=== PATIENT | male | born 1985 | race Caucasian/White ===

== ENCOUNTER 2018-04-13 12:35 | Emergency (ER) | payer OTHER ==
[~2018-04-13] VITALS: Ht 172.7 cm; Wt 124.3 kg
[~2018-04-13 12:35] MED LIST: AMOX500 PO; CETI10 PO; HYDACE5 PO; IBUP600 PO; METO10 PO; NEOPOLDEXS BOTHEYES; Naprosyn500 MG PO; PENVK500 PO; PRED20 PO; RXTRAM50 PO; TRAM50 PO
[2018-04-13] MEDS ORDERED: Zoloft50 MG PO (12:52)
[2018-04-13 13:06] LABS: Source, Urine Clean Catch
[2018-04-13 13:11] LABS: Appearance, Urine Clear (Clear); Bilirubin, Urine Neg (Neg); Blood, Urine Neg (Neg); Color, Urine Yellow (P-Yellow); Glucose Qualitative, Urine Neg (Neg); Ketones, Urine 1+ (Neg); Leukocyte Esterase, Urine Neg (Neg); Nitrite, Urine Neg (Neg); Protein, Urine 1+ (Neg); Urobilinogen, Urine 1+ (Normal)
[2018-04-13] MEDS ORDERED: Percocet 5-3251 EACH PO (13:50)
== END 2018-04-13 14:00 | disposition home or self-care (01) ==
LOC: ER 12:35
PROVIDERS: Physician Assistant
DX: N50.812 Left testicular pain (principal); N50.811 Right testicular pain; F17.200 Nicotine dependence, unspecified, uncomplicated
CPT/HCPCS: 76870; 99284-25

== ENCOUNTER 2019-07-29 16:45 | Emergency (ER) | payer OTHER ==
[~2019-07-29] VITALS: Ht 177.8 cm; Wt 117.9 kg
[~2019-07-29 16:45] MED LIST changes: +Percocet 5-3251 EACH PO; +Zoloft50 MG PO
== END 2019-07-29 19:19 | disposition home or self-care (01) ==
LOC: ER 16:45
DX: N43.3 Hydrocele, unspecified (principal); I86.1 Scrotal varices; N50.3 Cyst of epididymis; F17.220 Nicotine dependence, chewing tobacco, uncomplicated
CPT/HCPCS: 76857; 76870; 99283-25

== ENCOUNTER 2019-09-28 21:04 | Emergency (ER) | payer OTHER ==
[~2019-09-28] VITALS: Ht 175.3 cm; Wt 122.5 kg
[2019-09-28] MEDS ORDERED: Cleocin HCl300 MG PO (23:31)
== END 2019-09-28 23:45 | disposition home or self-care (01) ==
LOC: ER 21:04
DX: K04.7 Periapical abscess without sinus (principal); F17.220 Nicotine dependence, chewing tobacco, uncomplicated
CPT/HCPCS: 99282; A9270

== ENCOUNTER 2019-11-21 08:44 | Emergency (ER) | payer OTHER ==
[~2019-11-21] VITALS: Ht 177.8 cm; Wt 115.7 kg
[~2019-11-21 08:44] MED LIST changes: +Cleocin HCl300 MG PO
[2019-11-21] MEDS ORDERED: SERT50 PO (10:13)
== END 2019-11-21 10:17 | disposition home or self-care (01) ==
LOC: ER 08:44
DX: S01.01XA Laceration without foreign body of scalp, initial encounter (principal); F17.220 Nicotine dependence, chewing tobacco, uncomplicated; Z79.899 Other long term (current) drug therapy; W22.8XXA Striking against or struck by other objects, initial encounter
CPT/HCPCS: 99283

== ENCOUNTER 2020-04-21 23:19 | Emergency (ER) | payer OTHER ==
[~2020-04-21] VITALS: Ht 172.7 cm; Wt 122.5 kg
[~2020-04-21 23:19] MED LIST changes: +SERT50 PO
== END 2020-04-22 00:20 | disposition home or self-care (01) ==
LOC: ER 23:19
DX: R10.32 Left lower quadrant pain (principal); F17.200 Nicotine dependence, unspecified, uncomplicated; Z79.899 Other long term (current) drug therapy
CPT/HCPCS: 99282

== ENCOUNTER 2020-07-29 09:07 | Emergency (ER) | payer OTHER ==
[~2020-07-29] VITALS: Ht 177.8 cm; Wt 122.5 kg
[2020-07-29] MEDS ORDERED: Cyclobenzaprine5 MG PO (10:49)
== END 2020-07-29 11:05 | disposition home or self-care (01) ==
LOC: ER 09:07
DX: M54.5 Low back pain (principal); G89.29 Other chronic pain; R19.7 Diarrhea, unspecified; M54.2 Cervicalgia; F17.200 Nicotine dependence, unspecified, uncomplicated; Z79.899 Other long term (current) drug therapy
CPT/HCPCS: 70450; 72040; 99284-25

== ENCOUNTER 2020-10-27 21:32 | Emergency (ER) | payer OTHER ==
[~2020-10-27] VITALS: Ht 177.8 cm; Wt 129.3 kg
[~2020-10-27 21:32] MED LIST changes: +Cyclobenzaprine5 MG PO
[2020-10-28 02:18] LABS: Source, Urine Voided
[2020-10-28 02:20] LABS: Blood, Urine Neg (Neg); Glucose Qualitative, Urine Neg (Neg); Ketones, Urine Neg (Neg); Leukocyte Esterase, Urine Neg (Neg); Nitrite, Urine Neg (Neg); Protein, Urine 2+ (Neg); Urobilinogen, Urine NORM (Normal)
[2020-10-28 02:22] LABS: BASOPHILS ABSOLUTE AUTO 0.03 K/mm3 (0.00-0.23); BASOPHILS PERCENT AUTO 1 % (0-2); EOSINOPHILS PERCENT AUTO 2 % (0-6); Hemoglobin 15.1 g/dL (13.5-17.5); IMMATURE GRAN ABSOLUTE AUTO 0.02 K/mm3 (0.00-0.10); IMMATURE GRAN PERCENT AUTO 0 % (0-1); LYMPHOCYTES ABSOLUTE AUTO 1.02 K/mm3 (0.84-5.20); LYMPHOCYTES PERCENT AUTO 16 % (21-46); MONOCYTES ABSOLUTE AUTO 0.35 K/mm3 (0.16-1.47); MONOCYTES PERCENT AUTO 6 % (4-13); Mean Corpuscular HGB Conc 32.1 g/dL (31.5-36.5); Mean Corpuscular Volume 81 fL (80-100); NEUTROPHILS ABSOLUTE AUTO 4.84 K/mm3 (1.96-9.15); NEUTROPHILS PERCENT AUTO 76 % (41-73); RDW Standard Deviation 37.8 fL (35.1-46.3); White Blood Cell Count 6.36 K/mm3 (4.00-11.30)
[2020-10-28 02:23] LABS: Mean Platelet Volume 10.7 fL (9.1-12.4); Platelet Count 206 K/mm3 (150-400)
[2020-10-28 02:27] LABS: Appearance, Urine Clear (Clear); Bilirubin, Urine 1+ (Neg); Color, Urine Amber (P-Yellow)
[2020-10-28 02:28] LABS: Amorphous Light (0-Heavy); Bacteria Few /hpf; Calcium Oxalate Crystals Many /hpf; Mucus Light (0-Heavy); Red Blood Cells, Urine Not Seen /hpf (0-2); Squamous Epithelial Cells Few /hpf (Few); White Blood Cells, Urine Not Seen /hpf (0-5)
[2020-10-28 02:32] LABS: Alanine Aminotransfer (ALT/SGP 43 U/L (12-78); Albumin/Globulin Ratio 1.1 (0.8-1.8); Alk Phos 91 U/L (50-136); Anion Gap 5 mmol/L (6-16); Aspartate Aminotrans (AST/SGOT 16 U/L (12-37); Bilirubin, Total 0.4 mg/dL (0.1-1.0); Blood Urea Nitrogen 13 mg/dL (8-24); Bun/Creatinine Ratio 15.5 (12.0-20.0); CO2, Blood 27 mmol/L (21-32); Calcium, Blood 8.8 mg/dL (8.5-10.1); Chloride, Blood 108 mmol/L (98-108); Creatinine, Blood 0.84 mg/dL (0.60-1.20); Globulin, Blood 3.7 g/dL (2.2-4.0); Glomerular Filtration Rate >60 (60-); Glucose, Blood 90 mg/dL (70-99); Potassium, Blood 3.7 mmol/L (3.5-5.5); Sodium, Blood 140 mmol/L (136-145); Total Protein, Blood 7.7 g/dL (6.4-8.2)
[2020-10-28] MEDS ORDERED: ONDA4ODT MM (03:06)
== END 2020-10-28 03:43 | disposition home or self-care (01) ==
LOC: ER 21:32
PROVIDERS: Student in an Organized Health Care Education/Training Program
DX: K52.9 Noninfective gastroenteritis and colitis, unspecified (principal)
CPT/HCPCS: 36415; 80053; 81001; 83690; 85025; 96374; 99284; J2405

== ENCOUNTER → 2021-03-10 | Outpatient (CLI) | payer OTHER ==
[~2021-03-10] MED LIST changes: +ONDA4ODT MM
[2021-03-10 09:15] LABS: BASOPHILS ABSOLUTE AUTO 0.03 K/mm3 (0.00-0.23); BASOPHILS PERCENT AUTO 1 % (0-2); EOSINOPHILS ABSOLUTE AUTO 0.04 K/mm3 (0.00-0.68); EOSINOPHILS PERCENT AUTO 1 % (0-6); Hematocrit 45.9 % (37.0-53.0); Hemoglobin 14.9 g/dL (13.5-17.5); IMMATURE GRAN ABSOLUTE AUTO 0.04 K/mm3 (0.00-0.10); IMMATURE GRAN PERCENT AUTO 1 % (0-1); LYMPHOCYTES ABSOLUTE AUTO 1.73 K/mm3 (0.84-5.20); LYMPHOCYTES PERCENT AUTO 32 % (21-46); MONOCYTES ABSOLUTE AUTO 0.35 K/mm3 (0.16-1.47); MONOCYTES PERCENT AUTO 7 % (4-13); Mean Corpuscular HGB Conc 32.5 g/dL (31.5-36.5); Mean Corpuscular Volume 80 fL (80-100); Mean Platelet Volume 9.2 fL (9.1-12.4); NEUTROPHILS ABSOLUTE AUTO 3.19 K/mm3 (1.96-9.15); NEUTROPHILS PERCENT AUTO 59 % (41-73); Platelet Count 250 K/mm3 (150-400); RDW Coefficient Variation 13.1 % (11.7-14.2); RDW Standard Deviation 37.1 fL (35.1-46.3); Red Blood Cell Count 5.73 M/mm3 (4.30-5.90); White Blood Cell Count 5.38 K/mm3 (4.00-11.30)
[2021-03-10 09:27] LABS: Alanine Aminotransfer (ALT/SGP 68 U/L (12-78); Albumin, Blood 4.1 g/dL (3.4-5.0); Albumin/Globulin Ratio 1.2 (0.8-1.8); Alk Phos 113 U/L (40-126); Anion Gap 10 mmol/L (6-16); Aspartate Aminotrans (AST/SGOT 28 U/L (12-37); Bilirubin, Total 0.3 mg/dL (0.1-1.0); Blood Urea Nitrogen 16 mg/dL (8-24); Bun/Creatinine Ratio 20.5 (12.0-20.0); CO2, Blood 26 mmol/L (21-32); Calcium, Blood 9.4 mg/dL (8.5-10.1); Chloride, Blood 104 mmol/L (98-108); Creatinine, Blood 0.78 mg/dL (0.60-1.20); Globulin, Blood 3.5 g/dL (2.2-4.0); Glomerular Filtration Rate >60 (60-); Glucose, Blood 106 mg/dL (70-99); Potassium, Blood 3.9 mmol/L (3.5-5.5); Sodium, Blood 140 mmol/L (136-145); Total Protein, Blood 7.6 g/dL (6.4-8.2)
[2021-03-10 09:30] LABS: Troponin I <0.017 ng/mL (0.000-0.040)
== END | disposition home or self-care (01) ==
LOC: LAB SHORT 09:07
PROVIDERS: General Practice
DX: R42 Dizziness and giddiness (principal)
CPT/HCPCS: 80053; 84484; 85025

== ENCOUNTER 2021-06-29 18:43 | Emergency (ER) | payer OTHER ==
[~2021-06-29] VITALS: Ht 177.8 cm; Wt 136.1 kg
== END 2021-06-29 20:19 | disposition home or self-care (01) ==
LOC: ER 18:43
DX: R51.9 Headache, unspecified (principal); F17.200 Nicotine dependence, unspecified, uncomplicated; Z79.899 Other long term (current) drug therapy
CPT/HCPCS: 99283; A9270

== ENCOUNTER 2021-12-29 16:42 | Emergency (ER) | payer OTHER ==
[~2021-12-29] VITALS: Ht 177.8 cm; Wt 138.3 kg
== END 2021-12-29 20:18 | disposition home or self-care (01) ==
LOC: ER 16:42
DX: S76.912A Strain of unspecified muscles, fascia and tendons at thigh level, left thigh, initial encounter (principal); Z79.899 Other long term (current) drug therapy; F17.220 Nicotine dependence, chewing tobacco, uncomplicated
CPT/HCPCS: 76857; 99283-25; A9270

== ENCOUNTER → 2022-08-16 | Outpatient (CLI) | payer OTHER ==
[2022-08-16 14:28] LABS: BASOPHILS ABSOLUTE AUTO 0.04 K/mm3 (0.00-0.23); BASOPHILS PERCENT AUTO 1 % (0-2); EOSINOPHILS ABSOLUTE AUTO 0.07 K/mm3 (0.00-0.68); EOSINOPHILS PERCENT AUTO 1 % (0-6); Hematocrit 45.8 % (37.0-53.0); Hemoglobin 14.9 g/dL (13.5-17.5); IMMATURE GRAN ABSOLUTE AUTO 0.04 K/mm3 (0.00-0.10); IMMATURE GRAN PERCENT AUTO 1 % (0-1); LYMPHOCYTES ABSOLUTE AUTO 1.05 K/mm3 (0.84-5.20); LYMPHOCYTES PERCENT AUTO 12 % (21-46); MONOCYTES ABSOLUTE AUTO 0.36 K/mm3 (0.16-1.47); MONOCYTES PERCENT AUTO 4 % (4-13); Mean Corpuscular HGB 25.6 pg (26.0-34.0); Mean Corpuscular HGB Conc 32.5 g/dL (31.5-36.5); Mean Corpuscular Volume 79 fL (80-100); Mean Platelet Volume 9.4 fL (9.1-12.4); NEUTROPHILS ABSOLUTE AUTO 7.22 K/mm3 (1.96-9.15); NEUTROPHILS PERCENT AUTO 82 % (41-73); Platelet Count 216 K/mm3 (150-400); RDW Coefficient Variation 13.6 % (11.7-14.2); RDW Standard Deviation 38.2 fL (35.1-46.3); Red Blood Cell Count 5.81 M/mm3 (4.30-5.90); White Blood Cell Count 8.78 K/mm3 (4.00-11.30)
[2022-08-16 14:37] LABS: Albumin/Globulin Ratio 1.1 (0.8-1.8); Bilirubin, Total 0.2 mg/dL (0.1-1.0); Bun/Creatinine Ratio 19.8 (12.0-20.0); Calcium, Blood 8.8 mg/dL (8.5-10.1); Creatinine, Blood 0.86 mg/dL (0.60-1.20); Globulin, Blood 3.7 g/dL (2.2-4.0); Potassium, Blood 3.8 mmol/L (3.5-5.5); Total Protein, Blood 7.7 g/dL (6.4-8.2)
== END | disposition home or self-care (01) ==
LOC: LAB SHORT 14:20 → LAB 14:20
PROVIDERS: Family Medicine
DX: R10.9 Unspecified abdominal pain (principal)
CPT/HCPCS: 80053; 83690; 85025